=== PATIENT | male | born 1960 | race Caucasian/White ===

== ENCOUNTER → 2016-08-20 | Outpatient (CLI) | payer OTHER | LOC: COL.VAS 14:46 | DX: M79.661 Pain in right lower leg (principal); I82.491 Acute embolism and thrombosis of other specified deep vein of right lower extremity ==

== ENCOUNTER → 2021-05-01 | Outpatient (CLI) | payer OTHER ==
[~2021-05-01] MED LIST: COLACE 100100 MG/CAP PO; ELIQUIS 5MG PO; MOTRIN 600600 MG/TAB PO; PERCOCET 325 MG1 TA2 PO; PRILOSEC 20MG20 MG PO; [UNRECOGNIZED DRUG - OTHER] PO
== END ==
LOC: COL.VAS 09:42
DX: S89.91XA Unspecified injury of right lower leg, initial encounter (principal); S50.11XA Contusion of right forearm, initial encounter; X58.XXXA Exposure to other specified factors, initial encounter